=== PATIENT | female | born 1960 | race Caucasian/White ===

== ENCOUNTER 2023-10-17 20:01 | Emergency (ER) | payer BC, SELFPAY ==
[2023-10-17] VITALS (17 sets, daily range): BP systolic 97–108; BP diastolic 56–71; PULSE 82–99; RESP 16; TEMP 36.6; O2SAT 93–96; BMI 27.5
--- NOTE | 2023-10-17 21:09 | ED_ITS ---
HPI - General Adult General Chief complaint: Chest Pain Stated complaint: HEART FLUTTERING Time Seen by Provider: 10/17/23 20:50 History of Present Illness HPI narrative: This 62-year-old female comes in reporting some palpitations after having an ERCP done elsewhere early this morning. She has jaundice symptoms that have arisen in the last couple weeks and testing found evidence of a cyst on her pancreas that is suspicious for pancreatic cancer. She had a stent placed in her common bile duct or pancreatic duct to allow for better drainage. She is now reporting some mild discomfort in this area. She states that she was asked at the postop process if she would like some pain medicine and she declined this but now states that she is having some discomfort in her upper epigastric area. She also feels occasional palpitations. She arrives with normal vital signs but her blood pressure is on the low side with a systolic value at 98. Related Data Home Medications Medication Instructions Recorded Confirmed atenolol 50 mg tablet 50 mg PO DAILY 10/17/23 10/17/23 furosemide 20 mg tablet 20 mg PO QAM 10/17/23 10/17/23 glipizide 10 mg tablet, extended 10 mg PO DAILY 10/17/23 10/17/23 release 24 hr ketoconazole 2 % topical cream applic topical BID PRN 10/17/23 Allergies Allergy/AdvReac Type Severity Reaction Status Date / Time No Known Drug Allergies Allergy Verified 10/17/23 20:09 Review of Systems Status of ROS: Reports: 10 or more systems reviewed and unremarkable except as noted in History and below Narrative: Constitutional: No fevers, no weight gain or loss. Eyes: No discharge. No vision changes. HENT: No congestion, no sore throat, no ear pain. Cardiovascular: No chest pain, no palpitations. Respiratory: No shortness of breath, no wheezes, no cough. Gastrointestinal: Mild upper epigastric pain. Genitourinary: No dysuria, no hematuria. Musculoskeletal: Normal range of motion. Skin: No rashes, no pruritis. She is jaundiced. Neurological: No dizziness, weakness, sensory change, speech change. Endo/Heme/Allergies: No bruising or bleeding. No polydipsia. Pysch: no suicidality, no anxiety, no insomnia. All other systems reviewed and are negative. PFSH PFSH Social History Smoking Status: Never smoker How often do you have a drink containing alcohol: 2-4 times a month How many standard drinks containing alcohol do you have on a typical day: 1 or 2 AUDIT-C Alcohol total score: 2 Non-prescribed substance use: denies use Exam Narrative: Exam Narrative: Constitutional: Well-developed, well-nourished, no acute distress. HEENT: Normocephalic, atraumatic. Neck: Normal range of motion. Nontender. Supple. Heart: Regular. No murmurs. Normal rate. Intact distal pulses. Lungs: Clear to auscultation. No chest discomfort. No wheezes, rhonchi, or rales. Abdomen: Normal bowel sounds. Nontender. No rebound tenderness. Genitalia: Deferred. Back: No midline tenderness. Normal range of motion. Extremities: Normal range of motion. No injury. Skin: Intact. No rash. Warm. No erythema or pallor. She has jaundice and scleral icterus. Neurologic: No altered sensation. No weakness. Alert and oriented. Psychiatric: No suicidality. No anxiety or depression. No insomnia. Nursing notes and vitals signs are reviewed. Const: Vital Signs, click to edit/add: Vital Signs - 24 hr 10/17/23 20:14 10/17/23 20:55 10/17/23 20:56 Temperature 98 F Pulse Rate 88 92 Pulse Rate [Pulse Oximeter] 99 Respiratory Rate 16 Blood Pressure 101/69 Blood Pressure [Ri ght Upper Arm] 98/61 Pulse Oximetry 96 96 95 Oxygen Delivery Me thod Room Air 10/17/23 21:00 10/17/23 21:15 10/17/23 21:30 Temperature Pulse Rate 89 82 95 Pulse Rate [Pulse Oximeter] Respiratory Rate Blood Pressure Blood Pressure [Ri ght Upper Arm] Pulse Oximetry 95 94 96 Oxygen Delivery Me thod 10/17/23 21:45 10/17/23 21:56 10/17/23 22:00 Temperature Pulse Rate 97 98 92 Pulse Rate [Pulse Oximeter] Respiratory Rate Blood Pressure 97/71 Blood Pressure [Ri ght Upper Arm] Pulse Oximetry 94 95 93 Oxygen Delivery Me thod 10/17/23 22:01 10/17/23 22:15 Temperature Pulse Rate 87 96 Pulse Rate [Pulse Oximeter] Respiratory Rate Blood Pressure 101/69 Blood Pressure [Ri ght Upper Arm] Pulse Oximetry 94 95 Oxygen Delivery Me thod Course Vital Signs Vital signs: Initial Vital Signs Temperature 98 F 10/17/23 20:14 Temperature Source Temporal Artery Scan 10/17/23 20:14 Pulse Rate 99 10/17/23 20:14 Pulse Rhythm Irregular 10/17/23 20:14 Respiratory Rate 16 10/17/23 20:14 Blood Pressure 98/61 10/17/23 20:14 Blood Pressure Mean 73 10/17/23 20:14 Pulse Oximetry 96 10/17/23 20:14 Oxygen Delivery Method Room Air 10/17/23 20:14 Vital Signs Temperature 98 F 10/17/23 20:14 Pulse Rate 99 10/17/23 20:14 Respiratory Rate 16 10/17/23 20:14 Blood Pressure 98/61 10/17/23 20:14 Pulse Oximetry 96 10/17/23 20:14 Oxygen Delivery Method Room Air 10/17/23 20:14 Temperature 98 F 10/17/23 20:14 Pulse Rate 96 10/17/23 22:15 Respiratory Rate 16 10/17/23 20:14 Blood Pressure 101/69 10/17/23 22:01 Pulse Oximetry 95 10/17/23 22:15 Oxygen Delivery Method Room Air 10/17/23 20:14 Medications Administered Medications: Discontinued Medications Generic Name Dose Route Start Last Admin Trade Name Freq PRN Reason Stop Dose Admin Sodium Chloride 1,000 mls @ 1,000 mls/hr 10/17/23 21:15 10/17/23 21:49 0.9 % Sodium Chloride 1000 Ml IV 10/17/23 22:14 1,000 mls/hr .Q1H DEJUAN Administration Ketorolac Tromethamine 15 mg 10/17/23 21:08 10/17/23 21:50 Ketorolac 30 Mg/Ml Inj IVP 10/17/23 21:09 15 mg ONCE ONE Administration Medical Decision Making MDM Narrative Medical decision making narrative: This patient is undergoing a workup to evaluate a cyst or mass on her pancreas that is suspicious for pancreatic cancer. She is jaundiced. She had an ERCP done earlier today and since then has had some occasional palpitations and some mild upper epigastric discomfort. She states that she had her lab studies done earlier today. She arrives in normal sinus rhythm which does show a first- degree AV block. She does have some occasions where there is a brief longer time interval between QRS complexes and this is where she feels a palpitation. She did receive a L of normal saline intravenously and a dose of Toradol 15 mg intravenously. I did discuss lab and imaging options with her at this time she declined these stating that she just had a workup earlier today. The patient continues to have reassuring vital signs. Her pain is improved with an IV dose of Toradol. She is okay to be discharged home and received a prescription from [employer] is a for more tablets of Toradol. ECG Data Attestation: I personally reviewed and interpreted this ECG as follows: Interpretation: Normal sinus rhythm with 1st degree AV block. Rate is 84 beats per minute. There are no ST or T-wave abnormalities. Discharge Plan Discharge Clinical Impression: Jaundice, Pancreas cyst Patient Disposition: Home w/ Parent or Adult Condition: Stable Additional Instructions: Take medication as needed and indicated. Follow up with primary physicians as scheduled and needed. Return if worsening. Prescriptions: No Action glipizide 10 mg tablet extended release 24hr 10 mg PO DAILY furosemide 20 mg tablet 20 mg PO QAM ketoconazole 2 % cream topical BID PRN atenolol 50 mg tablet 50 mg PO DAILY Follow Up/Referrals: Provider,Not a Local [Primary Care Provider] - Stand Alone Forms: [employer] Info Instructions
[2023-10-17] MEDS: 0.9 % SODIUM CHLORIDE 1000 ml 1,000 ML IV (21:49)
[2023-10-17] MEDS: KETOROLAC 30 MG/ML inj 15 MG IVP (21:50)
== END 2023-10-17 23:09 | disposition home or self-care (01) ==
PROVIDERS: Emergency Provider Emergency Medicine Emergency Medical Services
DX: R17 Unspecified jaundice (principal); K86.2 Cyst of pancreas
CPT/HCPCS: 96361; 96374; 99284; J1885; J7030

== ENCOUNTER 2024-07-24 14:47 | Outpatient (CLI) | payer BC, SELFPAY | END 2024-07-24 14:48 | disposition home or self-care (01) | LOC: NFLDREF 07-28 21:02 | PROVIDERS: Visit Provider Physician Assistant | DX: N39.0 Urinary tract infection, site not specified (principal) | CPT/HCPCS: 87086 ==